=== PATIENT | female | born 1965 | race American Indian/Alaskan Native ===

== ENCOUNTER 2018-11-09 21:21 | Emergency (ER) | payer SELFPAY ==
--- NOTE | 2018-11-09 21:35 | Emergency Department Report ---
Blank Doc - Documentation Documentation: This is a 53-year-old female that presents with frontal sinus pain, rhinnorrhea and nasal congestion. Stated has sore throat also. This initial assessment/diagnostic orders/clinical plan/treatment(s) is/are subject to change based on patient's health status, clinical progression and re- assessment by fellow clinical providers in the ED. Further treatment and workup at subsequent clinical providers discretion. Patient/guardians urged not to elope from the ED as their condition may be serious if not clinically assessed and managed. Initial orders include: 1- Patient sent to [facility] for further evaluation and treatment 2- strep swab
[2018-11-09] MEDS ORDERED: TYLENOL PO ONE (22:57)
[2018-11-09] MEDS ORDERED: DELTASONE PO ONE (22:58)
[2018-11-09 23:27] LABS: Amorphous Crystals,Urine Few; Bacteria,Urine 2+ /HPF (Negative); Bilirubin,Urine NEG (Negative); Blood,Urine NEG (Negative); Color,Urine Yellow (Yellow); Protein,Urine <15 mg/dL mg/dL (Negative)
[2018-11-09 23:28] LABS: HCG Qualitative,Urine Negative (Negative)
--- NOTE | 2018-11-10 00:39 | Emergency Department Report ---
- General Chief Complaint: Upper Respiratory Infection Stated Complaint: HEAD COLD/SINUS IRRITATION/THROAT PAIN Time Seen by Provider: 11/09/18 21:34 Source: patient Mode of arrival: Ambulatory Limitations: No Limitations - History of Present Illness Initial Comments: Patient is a 53-year-old -[place] female with no past medical history who presents to the ED with persistent nasal and sinus congestion for the last 3 months with dysuria, urinary frequency and urgency, low back pain and left eye itching, redness with purulent discharge. Patient states that she has been taking [id number] remedies and decongestants with no relief. Patient denies fever, chills, nausea, vomiting, abdominal pain, vaginal bleeding, sore throat, chest pain, shortness of breath, diarrhea, dizziness, hearing loss, change in vision or neck pain. MD Complaint: cough, rhinorrhea, nasal congestion, sinus pain, other (left eye pain, discharge and redness; low back pain, urinary urgency and frequency) -: Gradual, month(s) (3) Severity: severe Severity scale (0 -10): 7 Quality: sharp, aching Consistency: constant Improves With: nothing Worsens With: nothing Context: sick contacts Associated Symptoms: denies other symptoms, myalgias, headache, rhinorrhea, nasal congestion, sore throat, cough, dysuria. denies: fever, chills, diaph oresis, stiff neck, chest pain, shortness of breath, abdominal pain, vomiting, diarrhea, rash, confusion, right sweats, weight loss, epistaxis, hoarseness, ear pain, other Treatments Prior to Arrival: none - Related Data Previous Rx's Medication Instructions Recorded Last Taken Type Benzonatate [Tessalon Perles] 100 mg PO Q8HR #30 capsule 11/10/18 Unknown Rx Gentamicin 0.3% Ophth Soln 1 drops OP Q4H #1 bottle 11/10/18 Unknown Rx Ibuprofen [Motrin] 400 mg PO Q8H PRN #24 tablet 11/10/18 Unknown Rx levoFLOXacin [Levaquin TAB] 500 mg PO QDAY #10 tablet 11/10/18 Unknown Rx methylPREDNISolone [Medrol 4MG 4 mg PO DAILY #21 tab.ds.pk 11/10/18 Unknown Rx DOSEPAK (21 tabs)] Allergies Allergy/AdvReac Type Severity Reaction Status Date / Time Penicillins Allergy Unknown Verified 11/09/18 21:37 ED Review of Systems ROS: Stated complaint: HEAD COLD/SINUS IRRITATION/THROAT PAIN Other details as noted in HPI Constitutional: denies: chills, fever Eyes: eye pain (left eye pain, redness with purulent discharge), eye discharge (purulent left eye discharge). denies: vision change ENT: throat pain, congestion. denies: ear pain Respiratory: cough. denies: shortness of breath, SOB with exertion, SOB at rest, wheezing Cardiovascular: denies: chest pain, palpitations, syncope, paroxysmal nocturnal dyspnea Endocrine: no symptoms reported Gastrointestinal: denies: abdominal pain, nausea, vomiting, diarrhea Genitourinary: urgency, dysuria, frequency, discharge Musculoskeletal: back pain, arthralgia, myalgia. denies: joint swelling Skin: denies: rash, lesions Neurological: headache. denies: weakness, paresthesias Psychiatric: denies: anxiety, depression Hematological/Lymphatic: denies: easy bleeding, easy bruising ED Past Medical Hx - Past Medical History Previous Medical History?: Yes Hx GERD: Yes Additional medical history: anemic - Surgical History Past Surgical History?: Yes Additional Surgical History: partial hysterectomy - Social History Smoking Status: Never Smoker Substance Use Type: Alcohol - Medications Home Medications: Home Medications Medication Instructions Recorded Confirmed Last Taken Type Benzonatate [Tessalon Perles] 100 mg PO Q8HR #30 capsule 11/10/18 Unknown Rx Gentamicin 0.3% Ophth Soln 1 drops OP Q4H #1 bottle 11/10/18 Unknown Rx Ibuprofen [Motrin] 400 mg PO Q8H PRN #24 tablet 11/10/18 Unknown Rx levoFLOXacin [Levaquin TAB] 500 mg PO QDAY #10 tablet 11/10/18 Unknown Rx methylPREDNISolone [Medrol 4MG 4 mg PO DAILY #21 tab.ds.pk 11/10/18 Unknown Rx DOSEPAK (21 tabs)] ED Physical Exam - General Limitations: No Limitations General appearance: alert, in no apparent distress - Head Head exam: Present: atraumatic, normocephalic, normal inspection - Eye Eye exam: Present: PERRL, EOMI, other (Erythematous left conjunctival with purulent discharge and matting) Pupils: Present: normal accommodation - ENT ENT exam: Present: normal exam, normal orophraynx, mucous membranes moist, TM's normal bilaterally, normal external ear exam, other (grossly congested nasal passages; frontal and maxillary sinus tenderness) - Neck Neck exam: Present: normal inspection, full ROM, lymphadenopathy. Absent: tenderness - Respiratory Respiratory exam: Present: normal lung sounds bilaterally. Absent: respiratory distress, wheezes, rales, rhonchi, chest wall tenderness, accessory muscle use, decreased breath sounds - Cardiovascular Cardiovascular Exam: Present: regular rate, normal rhythm, normal heart sounds. Absent: systolic murmur, diastolic murmur, rubs, gallop - GI/Abdominal GI/Abdominal exam: Present: soft, normal bowel sounds - Rectal Rectal exam: Present: deferred - Extremities Exam Extremities exam: Present: normal inspection, full ROM, normal capillary refill - Back Exam Back exam: Present: normal inspection, full ROM. Absent: tenderness, CVA tenderness (R), CVA tenderness (L), muscle spasm, paraspinal tenderness, vertebral tenderness - Neurological Exam Neurological exam: Present: alert, oriented X3, CN II-XII intact, normal gait, reflexes normal - Psychiatric Psychiatric exam: Present: normal affect, normal mood, anxious - Skin Skin exam: Present: warm, dry, intact, normal color. Absent: rash ED Course Vital Signs 11/09/18 11/09/18 21:34 23:54 Temperature 98.6 F Pulse Rate 89 Respiratory 18 20 Rate Blood Pressure 148/64 O2 Sat by Pulse 98 Oximetry - Reevaluation(s) Reevaluation #1: 11/10/18 00:47 This is a 53-year-old female who presented to the ED with nasal and sinus congestion, dry cough, dysuria, urinary frequency and hesitancy on the left eye pain with purulent discharge and matting. In the ED, patient is alert and oriented 3, anxious but in no acute distress with normal vital signs. Urinalysis shows significant urinary tract infection. Patient was treated for pain in the ED and discharged home on antibiotics, both chronic sinusitis and acute urinary tract infection. Patient was also given antibiotic eyedrops for the left eye conjunctivitis. Patient was discharged home and advised follow-up with her primary care physician in 7-10 days for reevaluation or return to the ED immediately if symptoms get worse. ED Medical Decision Making - Medical Decision Making This is a 53-year-old female who presented to the ED with nasal and sinus congestion, dry cough, dysuria, urinary frequency and hesitancy on the left eye pain with purulent discharge and matting. In the ED, patient is alert and oriented 3, anxious but in no acute distress with normal vital signs. Urinalysis shows significant urinary tract infection. Patient was treated for pain in the ED and discharged home on antibiotics, both chronic sinusitis and acute urinary tract infection. Patient was also given antibiotic eyedrops for the left eye conjunctivitis. Patient was discharged home and advised follow-up with her primary care physician in 7-10 days for reevaluation or return to the ED immediately if symptoms get worse. - Differential Diagnosis sinusitis, sinus headache, chronic URI; Bronchitis, acute UTI Critical care attestation.: If time is entered above; I have spent that time in minutes in the direct care of this critically ill patient, excluding procedure time. ED Disposition Clinical Impression: Acute recurrent frontal sinusitis, Acute upper respiratory infection, Acute urinary tract infection, Acute bacterial conjunctivitis of left eye Disposition: DC-01 TO HOME OR SELFCARE Is pt being admited?: No Does the pt Need Aspirin: No Condition: Stable Instructions: Conjunctivitis (ED), Upper Respiratory Infection (ED), Acute Bacterial Rhinosinusitis (ED) Additional Instructions: Take medications with food, drink plenty of fluids and follow-up with your primary care physician in 7-10 days for reevaluation. Return to the ED immediately if symptoms get worse. Prescriptions: Gentamicin 0.3% Ophth Soln 1 drops OP Q4H #1 bottle levoFLOXacin [Levaquin TAB] 500 mg PO QDAY #10 tablet methylPREDNISolone [Medrol 4MG DOSEPAK (21 tabs)] 4 mg PO DAILY #21 tab.ds.pk Ibuprofen [Motrin] 400 mg PO Q8H PRN #24 tablet PRN Reason: Pain , Severe (7-10) Benzonatate [Tessalon Perles] 100 mg PO Q8HR #30 capsule Referrals: [facility] [Outside] - 3-5 Days Forms: Work/School Release Form(ED) Time of Disposition: 00:35 Print Language: ARABIC
[2018-11-10 00:58] VITALS: BP 127/92
== END 2018-11-10 00:58 | disposition home or self-care (01) ==
LOC: ED 21:21
DX: J01.11 Acute recurrent frontal sinusitis (principal); J06.9 Acute upper respiratory infection, unspecified; N39.0 Urinary tract infection, site not specified; H10.32 Unspecified acute conjunctivitis, left eye; K21.9 Gastro-esophageal reflux disease without esophagitis; Z88.0 Allergy status to penicillin; Z79.1 Long term (current) use of non-steroidal anti-inflammatories (NSAID); Z79.899 Other long term (current) drug therapy; Z90.711 Acquired absence of uterus with remaining cervical stump; Z86.2 Personal history of diseases of the blood and blood-forming organs and certain disorders involving the immune mechanism
CPT/HCPCS: 81001; 81025; 87086; 99283; J7512; 87076; 87186